=== PATIENT | female | born 1960 | race Caucasian/White ===

== ENCOUNTER 2021-01-30 13:39 | Emergency (ER) | payer MEDICAID ==
[~2021-01-30] VITALS: Ht 165.1 cm; Wt 81.6 kg
[2021-01-30 13:39] VITALS: BP_SYST 153
[~2021-01-30 13:39] MED LIST: ASPI-1155 PO; ATOR40TA68 PO; CALC-619; GABA300S PO; HYDR-3927 PO; IBUP-1017 PO; ISO10 PO; LORA-258 PO; METO-442 PO; OMEP10CA5 PO; ROPI1TAB2 PO; SERT-131 PO; WARF4TAB2 PO; hctz; lisinopril
--- NOTE | 2021-01-30 13:40 | NUR ---
BROUGHT BACK TO BED #5 AND TRIAGED. REPORT GIVEN TO MECHE
--- NOTE | 2021-01-30 13:45 | NUR ---
PT CAME IN FROM HOME C/O PAIN AROUND UMBILICUS X 3DAYS. ALSO REPORTS SWELLING BEHIND UMBILICUS. STATES SHE HAD A BM TODAY. PT IS AMBULTORY, AAOX4, V/S STABLE UPON ARRIVAL
--- NOTE | 2021-01-30 13:56 | NUR ---
ER DR. ALICEA AT THE BEDSIDE EXAMINING PT
--- NOTE | 2021-01-30 14:07 | NUR ---
Patient transported to radiology via WC, accompanied by STAFF.
[2021-01-30] MEDS ORDERED: KLO1 PO (14:13)
[2021-01-30] MEDS ORDERED: RIVA20TA PO (14:13)
[2021-01-30] MEDS ORDERED: RANO500T2 PO (14:13)
[2021-01-30] MEDS ORDERED: CLOP75TA32 PO (14:13)
[2021-01-30] MEDS ORDERED: ALBMDI INH (14:13)
[2021-01-30] MEDS ORDERED: LISI-209 PO (14:13)
[2021-01-30] MEDS ORDERED: METO-442 PO (14:13)
[2021-01-30] MEDS ORDERED: PRO40 PO (14:13)
[2021-01-30] MEDS ORDERED: NITSL SL (14:13)
[2021-01-30] MEDS ORDERED: OLME40TA12 PO (14:13)
[2021-01-30 15:21] VITALS: BP_SYST 153
--- NOTE | 2021-01-30 15:22 | NUR ---
Patient given written and verbal discharge instructions and verbalizes understanding. ER MD discussed with patient the results and treatment provided. Patient in stable condition. ID arm band removed. NO Rx given. Patient educated on pain management and to follow up with PMD. Pain Scale 0/10. Opportunity for questions provided and answered. Medication side effect fact sheet provided.
[2021-01-30] MEDS ORDERED: ONDANSETRON HCL 4 MG/2 ML VIAL ONE (20:57)
[2021-02-01] MEDS ORDERED: DICY10CA13 PO (17:45)
== END 2021-01-30 15:21 | disposition home or self-care (01) ==
LOC: SED 13:39
DX: K43.9 Ventral hernia without obstruction or gangrene (principal); I10 Essential (primary) hypertension; F17.210 Nicotine dependence, cigarettes, uncomplicated; Z71.6 Tobacco abuse counseling; Z88.5 Allergy status to narcotic agent; Z88.6 Allergy status to analgesic agent; Z79.899 Other long term (current) drug therapy
CPT/HCPCS: 74176; 76376; 99284; J2405

== ENCOUNTER 2023-01-07 12:26 | Emergency (ER) | payer MEDICAID ==
[~2023-01-07] VITALS: Ht 165.1 cm; Wt 72.6 kg
[~2023-01-07 12:26] MED LIST changes: +ALBMDI INH; +AMIO400T5 PO; -ASPI-1155 PO; +CLOP75TA32 PO; +FAMO40TA71 PO; -GABA300S PO; -HYDR-3927 PO; -IBUP-1017 PO; +KLO1 PO; +LISI-209 PO; -LORA-258 PO; +NITSL SL; -OMEP10CA5 PO; +RANO500T2 PO; +RIVA20TA PO; -ROPI1TAB2 PO; -SERT-131 PO; -WARF4TAB2 PO; -hctz; -lisinopril
--- NOTE | 2023-01-07 12:26 | NUR ---
PT TRAIGED AND TAKEN TO BED ONE. PT BIB FROM HOME WITH C/O LEFT BACK PAIN SINCE 1000. PT STATES SHE HAS A CARDIAC HX WITH CABG AND STENT PLACEMENT AND HER M/I S/S PRESENT TO THE BACK.
--- NOTE | 2023-01-07 12:30 | NUR ---
EKG OBTAINED. DR. JEROME AT BEDSIDE TO ASSESS PT.
[2023-01-07 12:35] VITALS: BP_SYST 158
[2023-01-07 13:16] LABS: BASOPHILS % (AUTO) 0.9 % (0.0-2.0); EOSINOPHILS % (AUTO) 0.8 % (0.0-4.0); HEMOGLOBIN 17.4 g/dL (12.0-16.0); LYMPHOCYTES # (AUTO) 0.5 K/uL (1.0-5.5); LYMPHOCYTES % (AUTO) 9.1 % (20.5-51.5); MEAN CORPUSCULAR HEMOGLOBIN 32 pg (27-31); MEAN CORPUSCULAR HGB CONC 34 % (32-36); MEAN CORPUSCULAR VOLUME 96 fL (79.0-98.0); MONOCYTES # (AUTO) 0.3 K/uL (0.0-1.0); MONOCYTES % (AUTO) 6.4 % (1.7-9.3); NEUTROPHILS # (AUTO) 4.5 K/uL (1.8-7.7); NEUTROPHILS % (AUTO) 82.8 % (40.0-70.0); PLATELET COUNT (AUTO) 149 K/uL (130-430); RED BLOOD CELL COUNT(AUTO) 5.44 MIL/uL (4.2-6.2); RED CELL DISTRIBUTION WIDTH 16.6 % (9.0-15.0); WHITE BLOOD COUNT (AUTO) 5.4 K/uL (4.8-10.8)
[2023-01-07 13:24] LABS: ALANINE AMINOTRANSFERASE 18 U/L (12-78); ALBUMIN 3.7 g/dL (3.4-4.8); ANION GAP 5 (5-15); ASPARTATE AMINOTRANSFERASE 17 U/L (10-37); CALCIUM 9.1 mg/dL (8.4-11.0); CHLORIDE 104 mmol/L (98-107); CREATININE 1.05 mg/dL (0.55-1.30); GFR AFRICAN AMERICAN 68 mL/min (>90); GLUCOSE 114 mg/dL (70-99); INR 1.1 (0.8-1.2); PROTHROMBIN TIME 11.1 SECS (9.5-12.5); TOTAL BILIRUBIN 0.8 mg/dL (0.0-1.0); UREA NITROGEN, BLOOD 9 mg/dL (8-21)
--- NOTE | 2023-01-07 13:40 | NUR ---
Patient rocking back and forth on gurney. SO at bedside. Advised MD of patient's needs and requests.
--- NOTE | 2023-01-07 14:05 | NUR ---
Contacted [facility] transfer centr.
[2023-01-07] MEDS ORDERED: MORPHINE 2 MG/ML INJ. SYRINGE IVP ONE ×2 (14:15→20:00)
[2023-01-07] MEDS ORDERED: ONDANSETRON HCL 4 MG/2 ML VIAL IVP ONE (14:15)
[2023-01-07] MEDS ORDERED: dilTIAZem HCL IVP 5 MG/ML VIAL IVP ONE (14:30)
--- NOTE | 2023-01-07 15:02 | NUR ---
Faxed FS, summary report, & imaging reports to [place] at [facility]. Included notes on requested PCR performed & sent to lab at 1430.
--- NOTE | 2023-01-07 15:41 | NUR ---
Patient resting comfortably with VS stable. Patient on the phone with family member at this time and she has no requests or complaints at this time.
--- NOTE | 2023-01-07 17:02 | NUR ---
Called [facility] for transportation [place] [facility], room #349, Report Transport confirmation # [id number] ETA: [id number]
--- NOTE | 2023-01-07 19:09 | NUR ---
ETA FOR TRANSPORTATION IS NOT CONFIRMED.
--- NOTE | 2023-01-07 19:20 | NUR ---
Called and gave report to KENNEY Graff.
--- NOTE | 2023-01-07 20:00 | NUR ---
PT REPORTS PAIN, DR MADE AWARE ORDER FOR MORPHINE PLACED
--- NOTE | 2023-01-07 20:05 | NUR ---
Note undone in EDM - 01/08/23 at 0209 by [email or web address] Patient reports pain to []. Rates pain []/10. Pain provoked by []. Pain radiates to []. Pain first noted []. Quality of pain [].
--- NOTE | 2023-01-07 22:00 | NUR ---
PT STATES SHE TAKES KLONOPIN AT HOME AND IS RESTLESS ABOUT THE HOSPITAL STAY. MD AWARE PT HAS HX OF AFIB AND PT STATED SHE DID NOT TAKE ANY HOME MEDS. MADE AWARE.
--- NOTE | 2023-01-07 22:05 | NUR ---
PT STATED SHE WANTED TO LEAVE AMA, PT WAS GIVEN TEACHING HER HEART RATE WAS ELEVATED AND IT WAS NOT SAFE FOR HER WELL BEING. PT DEMANDED TO SPEAK TO DR. GAYTAN MADE AWARE
[2023-01-07] MEDS ORDERED: clonazePAM 0.5 MG TABLET PO ONE (22:30)
[2023-01-07] MEDS ORDERED: CLOPIDOGREL BISULFATE 75 MG TABLET PO ONE (23:15)
[2023-01-08] MEDS ORDERED: HYDROcodone/ACETAMIN 5-325 MG TAB (NORCO/ VICODIN) PO ONE (01:15)
--- NOTE | 2023-01-08 02:10 | NUR ---
Patient to be transferred to [facility]. Is being transferred due to higher level of care. Receiving facility has accepting physician and available space. ER physician has signed transfer form. Patient or responsible alliance party has agreed to transfer and signed form. Patient belongings inventoried and will be sent with patient. Copy of nursing notes, lab reports, EKG, Physicians Orders and X-rays to be sent with patient. Report called to OLEGARIO at receiving facility. Receiving physician is [facility] ED. [facility] service has been called for transfer. ETA is [id number].
[2023-01-08 05:16] VITALS: BP_SYST 137
== END 2023-01-08 02:00 | disposition short-term general hospital (02) ==
LOC: SED 12:26
DX: R07.9 Chest pain, unspecified (principal); I48.20 Chronic atrial fibrillation, unspecified; I10 Essential (primary) hypertension; E78.5 Hyperlipidemia, unspecified; F17.210 Nicotine dependence, cigarettes, uncomplicated; Z88.5 Allergy status to narcotic agent; Z88.6 Allergy status to analgesic agent; Z79.899 Other long term (current) drug therapy; Z20.822 Contact with and (suspected) exposure to COVID-19
CPT/HCPCS: 99285; 96374; 93971; 71045; 96375; 87426; 80053; 83880; 85025; 85610; 85730; 84484; 36415; 96376; J3490; J2405; J2270

== ENCOUNTER 2023-01-20 20:05 | Inpatient (IN) | payer MEDICAID ==
[~2023-01-20] VITALS: Ht 165.1 cm; Wt 72.6 kg
[2023-01-20 20:10] VITALS: BP_SYST 199
[2023-01-20] MEDS ORDERED: IPRATROPIUM/ALBUTEROL SULFATE 3 ML AMPUL.NEB (DUONEB) INH ONE (20:15)
[2023-01-20] MEDS ORDERED: DEXAMETHASONE SOD PHOSPHATE 10 MG/ML VIAL IVP ONE (20:15)
[2023-01-20] MEDS ORDERED: IPRATROPIUM/ALBUTEROL SULFATE 3 ML AMPUL.NEB (DUONEB) ONE (20:16)
[2023-01-20 20:40] LABS: BASOPHILS # (AUTO) 0.1 K/uL (0.0-0.2); EOSINOPHILS # (AUTO) 0.1 K/uL (0.0-0.4); EOSINOPHILS % (AUTO) 0.9 % (0.0-4.0); HEMOGLOBIN 16.8 g/dL (12.0-16.0); LYMPHOCYTES # (AUTO) 1.7 K/uL (1.0-5.5); MONOCYTES # (AUTO) 0.6 K/uL (0.0-1.0); RED CELL DISTRIBUTION WIDTH 16.7 % (9.0-15.0)
[2023-01-20 20:45] LABS: BASOPHILS % (AUTO) 0.7 % (0.0-2.0); HEMATOCRIT 50.3 % (36-48); LYMPHOCYTES % (AUTO) 22.9 % (20.5-51.5); MEAN CORPUSCULAR HEMOGLOBIN 32 pg (27-31); MEAN CORPUSCULAR HGB CONC 33 % (32-36); MEAN CORPUSCULAR VOLUME 96 fL (79.0-98.0); MONOCYTES % (AUTO) 8.4 % (1.7-9.3); NEUTROPHILS # (AUTO) 4.9 K/uL (1.8-7.7); NEUTROPHILS % (AUTO) 67.1 % (40.0-70.0); PLATELET COUNT (AUTO) 167 K/uL (130-430); RED BLOOD CELL COUNT(AUTO) 5.23 MIL/uL (4.2-6.2); WHITE BLOOD COUNT (AUTO) 7.4 K/uL (4.8-10.8)
[2023-01-20 20:50] LABS: ALANINE AMINOTRANSFERASE 32 U/L (12-78); ALBUMIN 3.8 g/dL (3.4-4.8); ANION GAP 11 (5-15); ASPARTATE AMINOTRANSFERASE 31 U/L (10-37); CALCIUM 8.7 mg/dL (8.4-11.0); CHLORIDE 101 mmol/L (98-107); CREATININE 1.23 mg/dL (0.55-1.30); GFR AFRICAN AMERICAN 57 mL/min (>90); GLUCOSE 189 mg/dL (70-99); TOTAL BILIRUBIN 0.9 mg/dL (0.0-1.0); UREA NITROGEN, BLOOD 11 mg/dL (8-21)
[2023-01-20] MEDS ORDERED: FUROSEMIDE 40 MG/4 ML VIAL IVP ONE (23:00)
[2023-01-21] MEDS ORDERED: IPRATROPIUM/ALBUTEROL SULFATE 3 ML AMPUL.NEB (DUONEB) INH PRN
[2023-01-21] MEDS ORDERED: NITROGLYCERIN 0.4 MG TAB.SUBL SL PRN
[2023-01-21] MEDS ORDERED: AMIODARONE HCL 200 MG TABLET PO SCH
[2023-01-21] MEDS ORDERED: ONDANSETRON HCL 4 MG/2 ML VIAL IVP ONE
[2023-01-21 01:00] VITALS: BP_SYST 157
[2023-01-21 01:03] LABS: BILIRUBIN,URINE NEGATIVE (NEGATIVE); BLOOD, URINE NEGATIVE (NEGATIVE); CLARITY/URINE CLEAR (CLEAR); COLOR,URINE YELLOW (YELLOW); GLUCOSE,URINE NEGATIVE (NEGATIVE); KETONES,URINE NEGATIVE (NEGATIVE); LEUKOCYTE ESTERASE ,URINE NEGATIVE (NEGATIVE); NITRITE, URINE NEGATIVE (NEGATIVE); PROTEIN URINE NEGATIVE (NEGATIVE); UROBILINOGEN,URINE 0.2 (0.2-1.0)
[2023-01-21] MEDS: IPRATROPIUM/ALBUTEROL SULFATE 3 ML AMPUL.NEB (DUONEB) INH SCH ×4 (01:36→20:09)
[2023-01-21 01:45] VITALS: BP_SYST 159
[2023-01-21] MEDS: clonazePAM 0.5 MG TABLET PO PRN ×3 (02:46→18:25)
[2023-01-21] MEDS: lisinopriL 5 MG TABLET PO SCH ×2 (02:47→09:32)
[2023-01-21] MEDS: ISOSORBIDE DINITRATE 10 MG TABLET (ISORDIL) PO SCH ×3 (02:48→22:20)
[2023-01-21] MEDS: METOPROLOL TARTRATE 50 MG TABLET PO SCH ×3 (02:48→22:20)
[2023-01-21] MEDS: RANOLAZINE 500 MG TAB.SR.12H PO SCH ×3 (02:50→22:20)
[2023-01-21 04:49] LABS: BASOPHILS % (AUTO) 0.2 % (0.0-2.0); HEMATOCRIT 44.8 % (36-48); HEMOGLOBIN 14.9 g/dL (12.0-16.0); LYMPHOCYTES # (AUTO) 0.2 K/uL (1.0-5.5); LYMPHOCYTES % (AUTO) 6.4 % (20.5-51.5); MEAN CORPUSCULAR HEMOGLOBIN 32 pg (27-31); MEAN CORPUSCULAR HGB CONC 33 % (32-36); MEAN CORPUSCULAR VOLUME 95 fL (79.0-98.0); MONOCYTES # (AUTO) 0.1 K/uL (0.0-1.0); MONOCYTES % (AUTO) 2.3 % (1.7-9.3); NEUTROPHILS # (AUTO) 3.3 K/uL (1.8-7.7); NEUTROPHILS % (AUTO) 91.1 % (40.0-70.0); PLATELET COUNT (AUTO) 131 K/uL (130-430); RED BLOOD CELL COUNT(AUTO) 4.72 MIL/uL (4.2-6.2); RED CELL DISTRIBUTION WIDTH 16.3 % (9.0-15.0); WHITE BLOOD COUNT (AUTO) 3.6 K/uL (4.8-10.8)
[2023-01-21 05:08] LABS: ALBUMIN 3.3 g/dL (3.4-4.8); CALCIUM 8.4 mg/dL (8.4-11.0); CREATININE 1.04 mg/dL (0.55-1.30); TOTAL BILIRUBIN 0.9 mg/dL (0.0-1.0)
[2023-01-21 08:00] VITALS: BP_SYST 146
[2023-01-21] MEDS ORDERED: POTASSIUM CHLORIDE 20 MEQ TAB.PRT.SR PO ONE ×2 (08:45→13:00)
[2023-01-21] MEDS ORDERED: HYDROcodone/ACETAMIN 5-325 MG TAB (NORCO/ VICODIN) PO PRN (08:45)
[2023-01-21] MEDS ORDERED: NALOXONE HCL 0.4 MG/ML AMP (NARCAN) IVP PRN (08:45)
[2023-01-21] MEDS ORDERED: BUDESONIDE/FORMOTEROL 160-4.5 mCg, 6 GM INHALER INH SCH (09:00)
[2023-01-21] MEDS: ATORVASTATIN 20 MG TABLET PO SCH (09:34)
[2023-01-21] MEDS: AMIODARONE HCL 200 MG TABLET PO SCH ×2 (09:34→22:21)
[2023-01-21] MEDS: CLOPIDOGREL BISULFATE 75 MG TABLET PO SCH (09:34)
[2023-01-21] MEDS: FAMOTIDINE 20 MG TABLET PO SCH (09:35)
[2023-01-21 12:05] VITALS: BP_SYST 136
[2023-01-21] MEDS: FUROSEMIDE 20 MG TABLET PO SCH (12:36)
[2023-01-21] MEDS ORDERED: predniSONE 20 MG TABLET PO ONE (14:00)
[2023-01-21] MEDS: AZITHROMYCIN 500 MG in NS 250 ML IV SCH (15:58)
[2023-01-21] MEDS: cefTRIAXone 1 GM in D5W 50 ML IV SCH (15:58)
[2023-01-21] MEDS: HYDROcodone/ACETAMIN 5-325 MG TAB (NORCO/ VICODIN) PO PRN (18:23)
[2023-01-21] MEDS: RIVAROXABAN 10 MG TABLET PO SCH (18:24)
[2023-01-21] MEDS ORDERED: ONDANSETRON HCL 4 MG/2 ML VIAL IVP PRN (18:30)
[2023-01-21 20:00] VITALS: BP_SYST 148
[2023-01-21] MEDS: BUDESONIDE 0.5 MG/2 ML AMPUL.NEB INH SCH (21:02)
[2023-01-21] MEDS: predniSONE 20 MG TABLET PO SCH (22:20)
[2023-01-22 00:21] VITALS: BP_SYST 140
[2023-01-22] MEDS: IPRATROPIUM/ALBUTEROL SULFATE 3 ML AMPUL.NEB (DUONEB) INH SCH ×4 (01:12→20:25)
[2023-01-22] MEDS: BUDESONIDE 0.5 MG/2 ML AMPUL.NEB INH SCH ×2 (07:15→21:42)
[2023-01-22 07:24] LABS: ALBUMIN 3.2 g/dL (3.4-4.8); CALCIUM 8.8 mg/dL (8.4-11.0); CREATININE 1.22 mg/dL (0.55-1.30); TOTAL BILIRUBIN 0.6 mg/dL (0.0-1.0)
[2023-01-22 08:08] VITALS: BP_SYST 138
[2023-01-22] MEDS: ISOSORBIDE DINITRATE 10 MG TABLET (ISORDIL) PO SCH ×2 (09:22→21:03)
[2023-01-22] MEDS: METOPROLOL TARTRATE 50 MG TABLET PO SCH ×2 (09:23→21:03)
[2023-01-22] MEDS: POTASSIUM CHLORIDE 20 MEQ TAB.PRT.SR PO SCH (09:23)
[2023-01-22] MEDS: CLOPIDOGREL BISULFATE 75 MG TABLET PO SCH (09:23)
[2023-01-22] MEDS: AMIODARONE HCL 200 MG TABLET PO SCH ×2 (09:24→21:02)
[2023-01-22] MEDS: RANOLAZINE 500 MG TAB.SR.12H PO SCH ×2 (09:25→21:02)
[2023-01-22] MEDS: FUROSEMIDE 20 MG TABLET PO SCH (09:25)
[2023-01-22] MEDS: predniSONE 20 MG TABLET PO SCH ×2 (09:25→21:03)
[2023-01-22] MEDS: lisinopriL 5 MG TABLET PO SCH (09:25)
[2023-01-22] MEDS: ATORVASTATIN 20 MG TABLET PO SCH (09:26)
[2023-01-22] MEDS: FAMOTIDINE 20 MG TABLET PO SCH (09:26)
[2023-01-22 12:00] VITALS: BP_SYST 132
[2023-01-22] MEDS: cefTRIAXone 1 GM in D5W 50 ML IV SCH (13:30)
[2023-01-22] MEDS: AZITHROMYCIN 500 MG in NS 250 ML IV SCH (14:26)
[2023-01-22] MEDS: RIVAROXABAN 10 MG TABLET PO SCH (17:33)
[2023-01-22 20:00] VITALS: BP_SYST 147
[2023-01-22] MEDS: HYDROcodone/ACETAMIN 5-325 MG TAB (NORCO/ VICODIN) PO PRN (21:02)
[2023-01-22] MEDS: clonazePAM 0.5 MG TABLET PO PRN (21:03)
[2023-01-22] MEDS: DOXYCYCLINE HYCLATE 100 MG CAPSULE PO SCH (21:03)
[2023-01-23 00:12] VITALS: BP_SYST 146
[2023-01-23] MEDS: IPRATROPIUM/ALBUTEROL SULFATE 3 ML AMPUL.NEB (DUONEB) INH SCH ×4 (02:08→19:00)
[2023-01-23 08:00] VITALS: BP_SYST 140
[2023-01-23] MEDS: CLOPIDOGREL BISULFATE 75 MG TABLET PO SCH (08:09)
[2023-01-23] MEDS: DOXYCYCLINE HYCLATE 100 MG CAPSULE PO SCH ×2 (08:09→21:18)
[2023-01-23] MEDS: FAMOTIDINE 20 MG TABLET PO SCH (08:10)
[2023-01-23] MEDS: FUROSEMIDE 20 MG TABLET PO SCH (08:10)
[2023-01-23] MEDS: lisinopriL 5 MG TABLET PO SCH (08:10)
[2023-01-23] MEDS: ATORVASTATIN 20 MG TABLET PO SCH (08:11)
[2023-01-23] MEDS: AMIODARONE HCL 200 MG TABLET PO SCH ×2 (08:11→21:20)
[2023-01-23] MEDS: ISOSORBIDE DINITRATE 10 MG TABLET (ISORDIL) PO SCH ×2 (08:11→21:17)
[2023-01-23] MEDS: RANOLAZINE 500 MG TAB.SR.12H PO SCH ×2 (08:18→21:20)
[2023-01-23] MEDS: predniSONE 20 MG TABLET PO SCH ×2 (08:18→21:18)
[2023-01-23] MEDS: METOPROLOL TARTRATE 50 MG TABLET PO SCH ×2 (08:18→21:19)
[2023-01-23] MEDS: POTASSIUM CHLORIDE 20 MEQ TAB.PRT.SR PO SCH (08:18)
[2023-01-23] MEDS: BUDESONIDE 0.5 MG/2 ML AMPUL.NEB INH SCH ×2 (10:22→21:00)
[2023-01-23] MEDS ORDERED: AMIO200T61 PO (11:01)
[2023-01-23] MEDS ORDERED: DOXY100C5 PO (11:01)
[2023-01-23] MEDS ORDERED: IPRA3AMP9 INH (11:01)
[2023-01-23] MEDS ORDERED: AMIO200T66 PO (11:01)
[2023-01-23] MEDS ORDERED: PRED10TA PO (11:03)
[2023-01-23] MEDS ORDERED: BUDE0.5A INH (11:10)
[2023-01-23 11:47] VITALS: BP_SYST 140
[2023-01-23 16:00] VITALS: BP_SYST 154
[2023-01-23] MEDS: clonazePAM 0.5 MG TABLET PO PRN ×2 (16:16→21:27)
[2023-01-23] MEDS: RIVAROXABAN 10 MG TABLET PO SCH (18:33)
[2023-01-23 20:00] VITALS: BP_SYST 147
[2023-01-23] MEDS: HYDROcodone/ACETAMIN 5-325 MG TAB (NORCO/ VICODIN) PO PRN (21:28)
[2023-01-24] VITALS: BP_SYST 136
[2023-01-24] MEDS: IPRATROPIUM/ALBUTEROL SULFATE 3 ML AMPUL.NEB (DUONEB) INH SCH ×2 (03:00→07:00)
[2023-01-24 08:00] VITALS: BP_SYST 161
[2023-01-24] MEDS: ATORVASTATIN 20 MG TABLET PO SCH (08:05)
[2023-01-24] MEDS: FAMOTIDINE 20 MG TABLET PO SCH (08:05)
[2023-01-24] MEDS: CLOPIDOGREL BISULFATE 75 MG TABLET PO SCH (08:05)
[2023-01-24] MEDS: DOXYCYCLINE HYCLATE 100 MG CAPSULE PO SCH (08:05)
[2023-01-24] MEDS: ISOSORBIDE DINITRATE 10 MG TABLET (ISORDIL) PO SCH (08:06)
[2023-01-24] MEDS: predniSONE 20 MG TABLET PO SCH (08:06)
[2023-01-24] MEDS: lisinopriL 5 MG TABLET PO SCH (08:07)
[2023-01-24] MEDS: METOPROLOL TARTRATE 50 MG TABLET PO SCH (08:07)
[2023-01-24] MEDS: AMIODARONE HCL 200 MG TABLET PO SCH (08:08)
[2023-01-24] MEDS: FUROSEMIDE 20 MG TABLET PO SCH (08:08)
[2023-01-24] MEDS: RANOLAZINE 500 MG TAB.SR.12H PO SCH (08:16)
[2023-01-24] MEDS: BUDESONIDE 0.5 MG/2 ML AMPUL.NEB INH SCH (09:00)
[2023-01-24 10:30] VITALS: BP_SYST 161
== END 2023-01-24 10:14 | disposition home health service (06) | DRG 133 ==
LOC: SED 20:05 → STU 22:54 → SMU 01-22 17:29
PROVIDERS: ADMIT Internal Medicine; ATTEND Internal Medicine
PROC: 5A09357 Assistance with Respiratory Ventilation, Less than 24 Consecutive Hours, Continuous Positive Airway Pressure (ICD-10-PCS; principal; 2023-01-20)
DX: J96.01 Acute respiratory failure with hypoxia (principal); R65.11 Systemic inflammatory response syndrome (SIRS) of non-infectious origin with acute organ dysfunction; I50.41 Acute combined systolic (congestive) and diastolic (congestive) heart failure; E44.1 Mild protein-calorie malnutrition; I11.0 Hypertensive heart disease with heart failure; J44.1 Chronic obstructive pulmonary disease with (acute) exacerbation; I48.20 Chronic atrial fibrillation, unspecified; I25.10 Atherosclerotic heart disease of native coronary artery without angina pectoris; E78.5 Hyperlipidemia, unspecified; G89.29 Other chronic pain; F17.200 Nicotine dependence, unspecified, uncomplicated; M54.9 Dorsalgia, unspecified; I25.5 Ischemic cardiomyopathy; Z20.822 Contact with and (suspected) exposure to COVID-19; E87.6 Hypokalemia; J20.9 Acute bronchitis, unspecified; Z88.1 Allergy status to other antibiotic agents; Z88.8 Allergy status to other drugs, medicaments and biological substances; Z79.01 Long term (current) use of anticoagulants; Z95.5 Presence of coronary angioplasty implant and graft
CPT/HCPCS: 36415; 71045; 80053; 80061; 81003; 83735; 83880; 84484; 85025; 94640; 94660; 94760; 96374; 96375; 99291; G0378; J0456; J0696; J1100; J1940; J2405; J7050; J7060; J7512; J7626